=== PATIENT | male | born 1985 | race Caucasian/White ===

== ENCOUNTER 2020-10-27 14:59 | Emergency (ER) | payer MEDICAID, OTHER ==
[~2020-10-27] VITALS: Ht 185.4 cm; Wt 70.0 kg
[2020-10-27 15:05] VITALS: BP 114/78
[2020-10-27] MEDS ORDERED: TETanus/Pertussis (Acell)/Diphther VAC/PF (Tdap-Adult) 0.5ml syringe IMVAC ONE (15:40)
[2020-10-27] MEDS ORDERED: LIDOcaine 1% W/epiNEPHrine 1:200,000 10ml vial IJ ONE (15:40)
== END 2020-10-27 18:02 | disposition home or self-care (01) ==
LOC: ER 15:00
DX: S61.412A Laceration without foreign body of left hand, initial encounter (principal); W26.8XXA Contact with other sharp object(s), not elsewhere classified, initial encounter; Y93.89 Activity, other specified; Y92.89 Other specified places as the place of occurrence of the external cause; Y99.8 Other external cause status
CPT/HCPCS: 12004; 73130; 99283